=== PATIENT | female | born 1960 | race Caucasian/White ===

== ENCOUNTER 2023-11-06 05:55 | Day surgery (SDC) | payer OTHER, SELFPAY ==
--- NOTE | 2023-10-04 09:45 | CM ---
Patient is scheduled for an elective L THR on 11/06/23- she is a same day patient. Spoke with patient prior to surgery. Introduced role of Orthopedic Navigator. Patient reports that she lives with her in a two story home. There are two steps
to enter and a flight of steps to the second floor. She currently functions independently. She has a cane and hip kit. She has never had VN services. PCP is Dr. Darrell Diaz.
Discussed orthopedic program and post surgical plans. Reviewed that she will have VN services initially and will then start outpatient PT. Patient selects [facility] (face sheet faxed to [facility] to facilitate confirmation of benefits) for her home care
needs and will go to [facility] for outpatient PT.
Patient is in agreement with plan and states that her will be home with her.
Patient will complete online education.
Plan: Orthopedic Navigator will remain available to assist with the care of patient and will reassess discharge needs after surgery.
[2023-10-17 07:07] VITALS: BMI 32.3
[2023-10-17 08:46] LABS: Hemoglobin 14.2 g/dL (12.0-16.0); Mean Corp Hgb Conc. 34.6 g/dL (33.0-37.0); Mean Corpuscular Hgb 31.1 pg (27.0-31.0); Mean Corpuscular Volume 89.7 fL (81.0-99.0); Mean Platelet Volume 10.8 fL (7.4-10.4); Platelet Count 198 10^3/uL (130-400); Red Blood Cell Count 4.57 10^6/uL (4.20-5.40); Red Cell Dist. Width 12.9 % (11.5-14.5); White Blood Cell Count 5.8 10^3/uL (4.8-10.8)
[2023-10-17 08:59] LABS: ALT (SGPT) 28 U/L (0-35); AST (SGOT) 31 U/L (14-36); Albumin 3.9 g/dl (3.5-5.0); Alkaline Phosphatase 79 U/L (38-126); Blood Urea Nitrogen 18 mg/dl (7-17); Calcium 9.5 mg/dl (8.4-10.2); Carbon Dioxide 30 mmol/L (22-30); Chloride 99 mmol/L (98-107); Estimated Creatinine Clearance 90 ml/min; Glucose 116 mg/dl (70-99); Potassium 4.5 mmol/L (3.5-5.1); Sodium 137 mmol/L (135-145); Total Bilirubin 0.7 mg/dl (0.2-1.3); Total Protein 6.4 g/dl (6.3-8.2); eGFR > 60.00
[2023-10-17 09:49] LABS: Glycohemoglobin (HgbA1c) 6.1 % (4.0-5.6)
[2023-10-17 15:24] VITALS: BMI 32.3
[2023-11-06] VITALS (11 sets, daily range): BP systolic 126–144; BP diastolic 67–86; PULSE 57; O2SAT 96; BMI 32.3
[2023-11-06 06:31] LABS: Glucose - Point of Care 122 mg/dl (70-99)
[2023-11-06] MEDS: CELEBREX 200 MG PO (06:32)
[2023-11-06] MEDS: TYLENOL 650 MG PO (06:33)
[2023-11-06] MEDS: NORMOSOL-R 1000 IV (06:33)
--- NOTE | 2023-11-06 07:40 | W.DS.TRANS ---
DC Summary - Psychiatric Attendant
-
Discharge Instructions:
Sleep Apnea Risk Intermediate
Discharge Diagnosis/Procedures L SUJIT Colón 11/06/23
Diet Diabetic, Carb Controlled
Activity With Walker
Driving Restrictions No driving
Bathing Restrictions OK to Shower
Other Services [facility],PT,OT
Instructions:
Stand-Alone Forms: SDS Total Hip and Knee D/C
Changes to Home Medications: Yes
Discharge Medications:
DC Medications w/original date entered in [employer]
calcium 1 tab PO PRN PRN bone health 10/11/23
desvenlafaxine succinate 50 mg tablet,extended release 24 hr (Pristiq) 50 mg PO DAILY 10/11/23
leflunomide 10 mg tablet 10 mg PO DAILY 10/11/23
lorazepam 0.5 mg tablet 0.5 mg PO HS 10/11/23
multivitamin 1 tab PO DAILY 10/11/23
nadolol 20 mg tablet 20 mg PO HS 10/11/23
rosuvastatin 10 mg tablet (Crestor) 20 mg PO .EVERY OTHER DAY 10/11/23
rosuvastatin 40 mg tablet (Crestor) 40 mg PO .EVERY OTHER DAY 10/11/23
valsartan 160 mg tablet 160 mg PO DAILY 10/11/23
celecoxib 200 mg capsule 200 mg PO DAILY anti-inflammatory #14 caps 10/17/23
dexamethasone 4 mg tablet 4 mg PO BID inflammation #6 tabs 10/17/23
famotidine 20 mg tablet 20 mg PO HS GI prophylaxis #30 tabs 10/17/23
gabapentin 300 mg capsule 300 mg PO HS sleep/pain #10 caps 10/17/23
mupirocin 2 % topical ointment 1 applic topical BID infection prevention #1 tube 10/17/23
tramadol 50 mg tablet 50 - 100 mg PO Q6H PRN 1 tab moderate, 2 tabs if pain severe #30 tabs 10/17/23
acetaminophen 325 mg capsule (Tylenol) 650 mg PO QID #2 caps 11/06/23
aspirin 325 mg tablet 325 mg PO DAILY blood clot prevention #1 tab 11/06/23
docusate sodium 100 mg capsule (Colace) 100 mg PO BID stool softner #1 cap 11/06/23
magnesium hydroxide 400 mg/5 mL oral suspension (Milk of Magnesia) 30 ml PO HS PRN Constipation #1 mL 11/06/23
sennosides 8.6 mg tablet (Senokot) 17.2 mg PO BID laxative #2 tabs 11/06/23
Home Medication Changes
celecoxib 200 mg capsule 200 mg PO DAILY anti-inflammatory #14 caps 10/17/23
dexamethasone 4 mg tablet 4 mg PO BID inflammation #6 tabs 10/17/23
famotidine 20 mg tablet 20 mg PO HS GI prophylaxis #30 tabs 10/17/23
gabapentin 300 mg capsule 300 mg PO HS sleep/pain #10 caps 10/17/23
mupirocin 2 % topical ointment 1 applic topical BID infection prevention #1 tube 10/17/23
tramadol 50 mg tablet 50 - 100 mg PO Q6H PRN 1 tab moderate, 2 tabs if pain severe #30 tabs 10/17/23
Pending Results: No
[2023-11-06] MEDS: DILAUDID 0.25 MG IV ×3 (09:22→09:44)
--- NOTE | 2023-11-06 10:29 | CM ---
Patient had planned L THR today. Met with patient and her at bedside to review discharge plans. Patient will be returning home today with services through [facility]. On Monday, 10/30, patient will start outpatient PT at [facility]. Reviewed MD
follow up in two weeks and patient has already scheduled her appointment.
Patient has her rolling walker here with her.
PT and VN were kept updated as to progress and discharge plans.
--- NOTE | 2023-11-06 10:31 | CM ---
Patient had planned L THR today. Met with patient and her at bedside to review discharge plans. Patient will be returning home today with services through [facility]. On , 11/09, patient will start outpatient PT at [facility]. Reviewed
follow up in two weeks and patient has already scheduled her appointment.
Patient has her rolling walker here with her.
PT and VN were kept updated as to progress and discharge plans.
[2023-11-06] MEDS: ANCEF 5 IV (11:12)
[2023-11-06] MEDS: ULTRAM 50 MG PO (11:52)
== END 2023-11-06 12:58 | disposition home health service (06) ==
LOC: SDS 05:55
PROVIDERS: ATTENDING PHYSICIAN Specialist; FAMILY PHYSICIAN Internal Medicine; OTHER PHYSICIAN Internal Medicine Cardiovascular Disease; REFERRING PHYSICIAN Physician Assistant Medical
DX: M16.12 Unilateral primary osteoarthritis, left hip (principal)
CPT/HCPCS: 27130; C1776; 36415; 73502; 80053; 82962; 83036; 85027; 87070; 97116; 97161; C1713